=== PATIENT | male | born 1980 | race Caucasian/White ===

== ENCOUNTER 2016-09-25 07:33 | Day surgery (SDC) | payer OTHER ==
[2016-09-19 12:07] VITALS: BMI 21.2
[2016-09-25] MEDS ORDERED: MIDAZOLAM HCL 2 MG/2 ML SINGLE DOSE VIAL ONE (08:58)
[2016-09-25] MEDS ORDERED: PROPOFOL 20 ML ONE (08:58)
[2016-09-25] MEDS ORDERED: DEXAMETHASONE SOD PHOSPHATE 4 MG/1 ML VIAL ONE (09:01)
[2016-09-25] MEDS ORDERED: LIDOCAINE HCL/PF 2% SDV 5ML VIAL ONE (09:01)
[2016-09-25] MEDS ORDERED: ceFAZolin SODIUM 1 GM VIAL ONE (09:01)
[2016-09-25] MEDS ORDERED: ONDANSETRON 4 MG/2 ML VIAL ONE (09:01)
[2016-09-25] MEDS ORDERED: BUPIVACAINE HCL/PF 2.5 MG/ML - 30 ML VIAL IJ ONE (09:24)
[2016-09-25] MEDS ORDERED: BUPIVACAINE HCL/PF 0.25% (2.5MG/ML) 10 ML VIAL IJ ONE (09:27)
[2016-09-25] MEDS ORDERED: KETOROLAC TROMETHAMINE 30 MG/1 ML VIAL ONE (09:54)
[2016-09-25] MEDS ORDERED: ONDANSETRON 4 MG/2 ML VIAL IVPUSH PRN (11:14)
[2016-09-25] MEDS ORDERED: LACTATED RINGERS SOLUTION 1,000 ML IV SCH (11:15)
[2016-09-25] MEDS ORDERED: oxyCODONE HCL 5 MG TABLET PO PRN (11:15)
[2016-09-25 12:36] VITALS: PULSE 77; TEMP 98.8
[2016-09-25] MEDS ORDERED: oxyCODONE HCL 5 MG TABLET ONE (12:45)
[2016-09-25 13:13] VITALS: BP 120/65
--- NOTE | 2016-09-25 13:50 | OP ---
DATE OF OPERATION: 09/25/2016 PREOPERATIVE DIAGNOSIS: Right medial meniscus tear. POSTOPERATIVE DIAGNOSIS: Right medial meniscus tear. PROCEDURE: Right knee arthroscopy with medial meniscal repair. SURGEON: Mathew Nath MD JIG HAND: JAHAIRA Roberson whose skillful assistance was necessary for the safe and timely performance of this procedure. Ms. Alberto was able to provide retraction, drive the camera, assist in patient positioning as well as assist in the repair of the soft tissues performed in the case. ANESTHESIA: General. POSTOPERATIVE CONDITION: Stable. COMPLICATIONS: None. TOURNIQUET TIME: 81 minutes. INDICATIONS: This is a pleasant gentleman suffering medial knee pain. MRI demonstrated a peripheral medial meniscal tear. Treatment options including nonoperative versus operative management were discussed. Operative risks were discussed in detail including bleeding, infection, neurovascular injury, need for further surgery, postoperative pain and stiffness, meniscal re-tear, progression of osteoarthritis. We discussed medical risks such as heart attack, stroke, DVT, PE, and . The patient voiced understanding and elected to proceed. DESCRIPTION OF PROCEDURE: The patient was brought to the operating room where general anesthesia was administered. The right lower extremity was then prepped and draped in the usual sterile fashion. A preoperative dose of antibiotics was given, and the usual time-out procedure was performed. At this point, the portal sites were marked and then injected subcutaneously with 0.25% Marcaine. An 11 blade was now used to establish a lateral portal. The arthroscope was now passed into the knee. Examination of the patellofemoral joint was limited as there was plica present medially. The arthroscope was now passed into the notch. Here the ACL and PCL were visualized to be intact. The medial compartment was examined demonstrating a tear at the meniscocapsular junction in the body of the meniscus. A medial portal was now established under spinal needle localization. The meniscus was probed and found to instability at the site where the meniscal capsular tear was noted. The undersuface demonstrated some fraying without a full tear through it. Probing demonstrated the meniscus was quite soft, and probe could be inserted into the body of the meniscus through the anterior surface. Given the periphery of his tear, it was decided that repair would be the best option. The lateral compartment was now inspected and found to be unremarkable. The arthroscope was passed back into the medial compartment. Here, a spinal needle was used to pass from the outside in through the meniscus. A Nitinol wire was now passed through and retrieved out anteriorly. This was then used to shuttle a 2-0 FiberWire suture. An incision was now made about the needle. One dissection was carried down to the level of the capsule. No definite full- thickness rent in the capsule was seen, but a thin area could be palpated. A spinal needle was now reinserted through the meniscus creating horizontal mattress pattern. A Nitinol wire was passed, and the 2-0 FiberWire was retrieved from within the joint to create the horizontal mattress suture. This was then handtied. This was repeated for a 2nd more anterior suture. The meniscus was now probed and found to be stable. In order to provide additional capsular fixation, the capsule was imbricated on the outside where it was felt to be thin utilizing 0 Vicryl sutures of which 3 were passed and tied in a simple fashion. Attention was now directed into the notch. Utilizing the shaver, an area anterior to the anterior cruciate ligament in the notch was debrided off the soft tissue. A microfracture awl was used to create trephinations, and marrow was seen to be exiting from the bone. At this point, the arthroscope was passed back into the patellofemoral joint. Here, the plica was excised. No significant cartilage adhesions were noted. At this point, the excess fluid was withdrawn from the knee. Sterile dressings were placed. The patient was placed into a knee brace. He was locked in full extension. Tourniquet was left down. He was extubated and transferred to the recovery room in stable condition. MATHEW NATH M.D. [id number] MTDD
== END 2016-09-25 13:23 | disposition home or self-care (01) ==
LOC: FASU 07:33
PROVIDERS: ATTEND Orthopaedic Surgery Sports Medicine
PROC: 0SQC4ZZ Repair Right Knee Joint, Percutaneous Endoscopic Approach (ICD-10-PCS; principal; 2016-09-25 09:28)
DX: S83.241A Other tear of medial meniscus, current injury, right knee, initial encounter (principal); X58.XXXA Exposure to other specified factors, initial encounter; Y93.9 Activity, unspecified; Y92.9 Unspecified place or not applicable
CPT/HCPCS: 94760; 97116-GP

== ENCOUNTER 2016-11-03 12:35 | Inpatient (IN) | payer OTHER ==
[2016-11-03] MEDS ORDERED: SODIUM CHLORIDE 1,000 ML IV STA (12:49)
--- NOTE | 2016-11-03 13:04 | PDOC ---
History of Present Illness - General Chief Complaint: Pain Stated Complaint: RIGHT LEG DVT Time Seen by Provider: 11/03/16 12:43 History Source: Patient Exam Limitations: No Limitations - History of Present Illness Initial Comments: 11/03/16 13:00 36-year-old male with no past medical history presents to the emergency department with Dr. Hwang for evaluation for rule out pulmonary embolism. The patient had sustained a right knee injury in June 2016 while on the job. 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 At that time, the patient was evaluated by orthopedics and was demonstrate have a miniscule and capsule tear. Patient underwent surgery for approximately 5 weeks ago. Though the patient has been mobile, he is noted intermittent swelling in his right lower extremity but but denies any pain. Patient underwent a duplex of his lower extremities which demonstrated deep venous thromboses involving the right superficial femoral, popliteal and posterior tibial vein. Last oral days, the patient has had intermittent short duration of left-sided back pain that resolved. He denies any chest pain or shortness of breath now. Past History - Past Medical History Allergies/Adverse Reactions: Allergies Allergy/AdvReac Type Severity Reaction Status Date / Time No Known Allergies Allergy Verified 11/03/16 12:57 Home Medications: Ambulatory Orders NK [No Known Home Medication] 09/19/16 Anemia: No Asthma: No Cancer: No Cardiac Disorders: No CVA: No COPD: No CHF: No Dementia: No Diabetes: No GI Disorders: No Disorders: No HTN: No Hypercholesterolemia: No Liver Disease: No Seizures: No Thyroid Disease: No - Psycho/Social/Smoking Cessation Hx Anxiety: No Suicidal Ideation: No Smoking History: Current some day smoker Have you smoked in the past 12 months: Yes Number of Cigarettes Smoked Daily: 0 Information on smoking cessation initiated: Yes 'Breaking Loose' booklet given: 01/10/16 Hx Alcohol Use: No Drug/Substance Use Hx: No Substance Use Type: None Hx Substance Use Treatment: No Review of Systems - Review of Systems Able to Perform ROS?: Yes Comments:: 11/03/16 13:03 GENERAL/CONSTITUTIONAL: No fever, weakness. HEAD, EYES, EARS, NOSE AND THROAT: No change in vision. No ear pain or discharge. No sore throat. CARDIOVASCULAR: No chest pain or shortness of breath. RESPIRATORY: No cough, wheezing, or hemoptysis. GASTROINTESTINAL: No abdominal pain, nausea, vomiting, diarrhea, or decreased PO intolerance. GENITOURINARY: No dysuria, frequency, or change in urination. MUSCULOSKELETAL: Right Lower Extremity swelling SKIN: No rash NEUROLOGIC: No headache, vertigo, loss of consciousness, or change in strength/ sensation. ENDOCRINE: No increased thirst. No abnormal weight change. HEMATOLOGIC/LYMPHATIC: No anemia, easy bleeding, or history of blood clots. ALLERGIC/IMMUNOLOGIC: No hives or skin allergy. *Physical Exam - Vital Signs Last Vital Signs Temp Pulse Resp BP Pulse Ox 97.9 F 82 15 134/78 100 11/03/16 12:39 11/03/16 12:39 11/03/16 12:39 11/03/16 12:39 11/03/16 12:39 - Physical Exam Comments: 11/03/16 13:03 GENERAL: Awake, alert, and fully oriented, in no acute distress. HEAD: No signs of trauma EYES: PERRLA, EOMI, sclera anicteric, conjunctiva clear ENT: Auricles normal inspection, hearing grossly normal, nares patent, oropharynx clear without exudates. NECK: Normal ROM, supple, no lymphadenopathy, JVD, or masses LUNGS: Breath sounds equal, clear to auscultation bilaterally. No wheezes, and no crackles HEART: Regular rate and rhythm, normal S1 and S2, no murmurs, rubs or gallops ABDOMEN: Soft, nontender, normoactive bowel sounds. No guarding, no rebound. No masses EXTREMITIES: Right lower extremity edematous, enlarged compared to left. NEUROLOGICAL: Cranial nerves II through XII grossly intact. Normal speech, normal gait SKIN: Warm, Dry, normal turgor, no rashes or lesions noted. Heart Score/ECG Review - History History: Slightly suspicious - Electrocardiogram EKG: Normal (egularphysician) - Age Age: </= 45 - Risk Factors Based on the list above the patient has:: No risk factors known #1 ECG reviewed & interpreted by me at: 01:00 11/03/16 12:59 NSR 72, incomplete RBBB, no std/cash, QTC 431 msec. T wave flat III ED Treatment Course - LABORATORY CBC & Chemistry Diagram: 11/03/16 13:10 11/03/16 13:10 - RADIOLOGY Radiology Studies Ordered: Category Date Time Status CHEST CTA [CT] Stat CT Scan 11/03/16 12:49 Ordered Medical Decision Making - Medical Decision Making 11/03/16 13:04 The patient will most certainly need anticoagulation for right lower extremity DVT. However, given the intermittent left back and chest pain and incomplete right bundle-branch block on EKG, we'll rule out PE. 11/03/16 15:28 CBC, BMP 11/03/16 13:10 11/03/16 13:10 CMP Sodium 135 mmol/L (136-145) L 11/03/16 13:10 Potassium 4.6 mmol/L (3.5-5.1) 11/03/16 13:10 Chloride 104 mmol/L (98-107) 11/03/16 13:10 Carbon Dioxide 23 mmol/L (22-28) 11/03/16 13:10 Anion Gap 8 (8-16) 11/03/16 13:10 BUN 9 mg/dl (7-18) 11/03/16 13:10 Creatinine 0.8 mg/dl (0.6-1.3) 11/03/16 13:10 Creat Clearance w eGFR > 60 (>60) 11/03/16 13:10 Random Glucose 106 mg/dl (74-106) 11/03/16 13:10 Calcium 9.6 mg/dl (8.4-10.2) 11/03/16 13:10 Total Bilirubin 0.6 mg/dl (0.2-1.0) 11/03/16 13:10 AST 22 U/L (10-42) 11/03/16 13:10 ALT 15 U/L (10-40) 11/03/16 13:10 Alkaline Phosphatase 61 U/L (32-92) 11/03/16 13:10 Total Protein 7.4 g/dl (6.4-8.3) 11/03/16 13:10 Albumin 4.1 g/dl (3.5-5.0) 11/03/16 13:10 INR, PTT INR 1.07 (0.82-1.09) 11/03/16 14:00 CT scan of chest performed. Demonstrates bilateral PE. However, vitals stable. Results given to the patient and to his . Case discussed with DR. Barahona. Given that the patient is very stable and has been breathing comfortably and without difficulty breathing. Will admit to telemetry admission. Case discussed in detail with admitting physician including history, physical exam and ancillary studies. Admitting physician has assumed care for the patient, will follow all pending diagnostics and will complete the evaluation and treatment. *DC/Admit/Observation/Transfer Diagnosis at time of Disposition: Pulmonary embolism - Discharge Dispostion Condition at time of disposition: Good Admit: Yes - Referrals Referrals: Mathew Hwang MD [Primary Care Provider] -
[2016-11-03 13:34] LABS: BASOPHIL 0.9 % (0-2.0); EOSINOPHIL 4.5 % (0-4.5); MCHC 33.5 g/dl (32.0-35.9); MEAN CELL VOLUME 89.4 fl (80-96); MEAN PLT VOLUME 8.6 fl (7.5-11.1); NEUTROPHILS 78.9 % (42.8-82.8); PLATELET COUNT 313 K/MM3 (134-434); RDW 12.5 % (11.9-15.9); WHITE BLOOD COUNT 10.6 K/mm3 (4.0-10.0)
[2016-11-03 13:41] LABS: ALBUMIN 4.1 g/dl (3.5-5.0); ALK PHOS 61 U/L (32-92); ANION GAP 8 (8-16); BILIRUBIN,TOTAL 0.6 mg/dl (0.2-1.0); CALCIUM 9.6 mg/dl (8.4-10.2); CO2 23 mmol/L (22-28); COCKROFT - GAULT 133.83; CREATININE 0.8 mg/dl (0.6-1.3); GLUCOSE,RANDOM 106 mg/dl (74-106); SGOT/AST 22 U/L (10-42); SGPT/ALT 15 U/L (10-40); TOT PROT 7.4 g/dl (6.4-8.3)
[2016-11-03] MEDS ORDERED: HEPARIN NA (PORCINE) 5,000 UNITS/ML 1ML VIAL IVPUSH ONE (15:00)
[2016-11-03] MEDS ORDERED: HEPARIN NA (PORCINE) 5,000 UNITS/ML 1ML VIAL IVPUSH PRN (15:01)
[2016-11-03 15:04] LABS: ACTIVATED PTT 32.1 SECONDS (24.0-38.9)
[2016-11-03 15:09] LABS: INR 1.07 (0.82-1.09)
[2016-11-03] MEDS ORDERED: HEPARIN INFUSION - 500 ML IVPB ONE (15:11)
[2016-11-03] MEDS: HEPARIN - 25,000 UNIT in SODIUM CHLORIDE 495 ML IV SCH (15:40)
[2016-11-03 19:18] VITALS: BMI 20.9
--- NOTE | 2016-11-03 22:15 | HP ---
Admitting History and Physical - Primary Care Physician PCP: Spencer Barahona - Admission History of Present Illness: 36-year-old male with no past medical history presents to the emergency department with Dr. Hwang for evaluation for rule out pulmonary embolism. The patient had sustained a right knee injury in June 2016 while on the job. 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 At that time, the patient was evaluated by orthopedics and was demonstrate have a miniscule and capsule tear. Patient underwent surgery for approximately 5 weeks ago. Though the patient has been mobile, he is noted intermittent swelling in his right lower extremity but but denies any pain. Patient underwent a duplex of his lower extremities which demonstrated deep venous thromboses involving the right superficial femoral, popliteal and posterior tibial vein. Last oral days, the patient has had intermittent short duration of left-sided back pain that resolved. He denies any chest pain or shortness of breath - Past Medical History Rheumatology: Yes: Other (r knee surgery) - Smoking History Smoking history: Current some day smoker Have you smoked in the past 12 months: Yes Aproximately how many cigarettes per day: 0 - Alcohol/Substance Use Hx Alcohol Use: No Home Medications - Allergies Allergies/Adverse Reactions: Allergies Allergy/AdvReac Type Severity Reaction Status Date / Time No Known Allergies Allergy Verified 11/03/16 12:57 - Home Medications Home Medications: Ambulatory Orders NK [No Known Home Medication] 09/19/16 Review of Systems - Review of Systems Cardiovascular: reports: Other (back pain?) Physical Examination Vital Signs: Vital Signs Temperature 98.6 F 11/03/16 19:13 Pulse Rate 72 11/03/16 20:00 Respiratory Rate 15 11/03/16 20:00 Blood Pressure 105/63 11/03/16 20:00 O2 Sat by Pulse Oximetry (%) 99 11/03/16 20:00 Constitutional: Yes: No Distress HENT: Yes: Atraumatic Neck: Yes: Supple Cardiovascular: Yes: Regular Rate and Rhythm Respiratory: Yes: CTA Bilaterally Gastrointestinal: Yes: Normal Bowel Sounds Extremities: Yes: WNL Neurological: Yes: Alert, Oriented Problem List - Problems (1) Pulmonary embolism Code(s): I26.99 - OTHER PULMONARY EMBOLISM WITHOUT ACUTE COR PULMONALE (2) Knee injury Code(s): S89.90XA - UNSPECIFIED INJURY OF UNSPECIFIED LOWER LEG, INIT ENCNTR (3) Dvt femoral (deep venous thrombosis) Code(s): I82.419 - ACUTE EMBOLISM AND THROMBOSIS OF UNSPECIFIED FEMORAL VEIN Assessment/Plan Laboratory Tests 11/03/16 11/03/16 11/03/16 13:10 13:10 14:00 WBC 10.6 H RBC 4.51 Hgb 13.5 Hct 40.3 MCV 89.4 MCHC 33.5 RDW 12.5 Plt Count 313 MPV 8.6 Neutrophils % 78.9 Lymphocytes % 11.1 Monocytes % 4.6 Eosinophils % 4.5 Basophils % 0.9 INR 1.07 PTT (Actin FS) 32.1 Sodium 135 L Potassium 4.6 Chloride 104 Carbon Dioxide 23 Anion Gap 8 BUN 9 Creatinine 0.8 Creat Clearance w eGFR > 60 Random Glucose 106 Calcium 9.6 Total Bilirubin 0.6 AST 22 ALT 15 Alkaline Phosphatase 61 Total Protein 7.4 Albumin 4.1 11/03/16 21:30 WBC RBC Hgb Hct MCV MCHC RDW Plt Count MPV Neutrophils % Lymphocytes % Monocytes % Eosinophils % Basophils % INR PTT (Actin FS) 50.9 H D Sodium Potassium Chloride Carbon Dioxide Anion Gap BUN Creatinine Creat Clearance w eGFR Random Glucose Calcium Total Bilirubin AST ALT Alkaline Phosphatase Total Protein Albumin Active Medications Generic Name Dose Route Start Last Admin Trade Name Freq PRN Reason Stop Dose Admin Heparin Sodium (Porcine) 1,000 unit 11/03/16 15:01 Heparin - IVPUSH PRN PRN Heparin Heparin Sodium (Porcine) 5,000 unit 11/03/16 15:01 Heparin - IVPUSH PRN PRN Heparin Heparin Sodium (Porcine) 25, 500 mls @ 20 mls/hr 11/03/16 15:15 11/03/16 15:40 000 unit/ Sodium Chloride IV 20 mls/hr TITR ANABELLA Administration Protocol 1,000 UNIT/HR 1.PE /R KRISTAN DVT S/P KNEE SURGERY IV HEPARIN PER PROTOCOL WILL GET PULMONARY INVOLVED
[2016-11-04 07:17] LABS: BASOPHIL 1.2 % (0-2.0); EOSINOPHIL 7.9 % (0-4.5); MCH 30.1 pg (25.7-33.7); MCHC 32.8 g/dl (32.0-35.9); MEAN CELL VOLUME 91.8 fl (80-96); NEUTROPHILS 61.2 % (42.8-82.8); PLATELET COUNT 241 K/MM3 (134-434); RDW 13.1 % (11.9-15.9); WHITE BLOOD COUNT 6.7 K/mm3 (4.0-10.0)
[2016-11-04 08:04] LABS: ALBUMIN 3.4 g/dl (3.4-5.0); ANION GAP 9 (8-16); BILIRUBIN,TOTAL 0.6 mg/dL (0.2-1.0); CALCIUM 8.9 mg/dL (8.5-10.1); CO2 26 mmol/L (21-32); COCKROFT - GAULT 151; CREATININE 0.7 mg/dL (0.7-1.3); GLUCOSE,RANDOM 98 mg/dL (74-106); SGOT/AST 14 U/L (15-37); SGPT/ALT 17 U/L (12-78); TOT PROT 6.6 g/dl (6.4-8.2)
[2016-11-04 08:05] LABS: ALK PHOS 63 U/L (45-117)
--- NOTE | 2016-11-04 10:39 | PN ---
Progress Note (short form) - Note Progress Note: PULMONARY CONSULTATION DICTATED 11/04/16 IMP ACUTE PULMONARY EMBOLISM LIKELY PROVOKED S/P RECENT SURGERY RLL DVT PLAN ANTICOAGULATION ECHO CARDIAC ENZYMES W/U FOR HYPERCOAGULABLE STATE CONSIDER THROMBECTOMY RLE DVT DR LEWIS Problem List - Problems (1) Pulmonary embolism Code(s): I26.99 - OTHER PULMONARY EMBOLISM WITHOUT ACUTE COR PULMONALE (2) Neck injury Code(s): S19.9XXA - UNSPECIFIED INJURY OF NECK, INITIAL ENCOUNTER Qualifiers: Encounter type: initial encounter Qualified Code(s): S19.9XXA - Unspecified injury of neck, initial encounter (3) Dvt femoral (deep venous thrombosis) Code(s): I82.419 - ACUTE EMBOLISM AND THROMBOSIS OF UNSPECIFIED FEMORAL VEIN
--- NOTE | 2016-11-04 12:40 | PN ---
Progress Note (short form) - Note Progress Note: Pt reports he is comfortable. Leg remains swollen and stiff but without pain. AFVSS RLE persistent swelling NVID A/p DVT/PE s/p knee arthroscopy -pt has been started on treatment with anticoagulation -ok for gentle knee ROM -is considering embolectomy, has discussed with
--- NOTE | 2016-11-04 13:44 | EKG ---
Test Reason : Blood Pressure : / mmHG Vent. Rate : 072 BPM Atrial Rate : 072 BPM P-R Int : 108 ms QRS Dur : 118 ms QT Int : 394 ms P-R-T Axes : 050 067 059 degrees QTc Int : 431 ms SINUS RHYTHM WITH SHORT MS INCOMPLETE RIGHT BUNDLE BRANCH BLOCK BORDERLINE ECG WHEN COMPARED WITH ECG OF 30-NOV-2007 14:52, NO SIGNIFICANT CHANGE WAS FOUND Confirmed by ROMAN CLEARY, SOFYA ([id number]) on 11/04/2016 1:44:09 PM Referred By: MEAGAN Confirmed By:SOFYA OWENS MD
[2016-11-04] MEDS ORDERED: ALTEPLASE IVPB ONE (14:30)
[2016-11-04] MEDS ORDERED: SODIUM CHLORIDE IVPB ONE (14:30)
--- NOTE | 2016-11-04 15:08 | CONS ---
DATE OF CONSULTATION: 11/04/2016 REFERRING PHYSICIAN: Spencer Barahona MD The patient is a 36-year-old white man without any past medical history, admitted to [facility], with right lower extremity swelling. The patient underwent a knee surgery approximately 5 weeks ago. Apparently, he has been ambulating well but recently noticed swelling of the right lower extremity. He also complained of some chest pain about a week ago, which resolved after taking Advil. He underwent a duplex of the lower extremities which revealed a large DVT in the right lower extremity and right superficial popliteal and posterior tibial vein. He was transferred to [facility] ER for the above. In the ER, he underwent a CTA of the chest which revealed bilateral pulmonary emboli. He was started on IV heparin. The patient denies any shortness of breath, cough, or hemoptysis. Denies any fevers, weight loss, or night sweats. There is no history of DVT or PE in the past. There is no family history of PE. SOCIAL HISTORY: He has a history of smoking a few cigarettes a day. He stopped 8 weeks ago. 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 PAST MEDICAL HISTORY: Unremarkable. PAST SURGICAL HISTORY: Knee surgery 5 weeks ago. CURRENT MEDICATIONS: Heparin. REVIEW OF SYSTEMS: No orthopnea. No PND. No chest pain. No shortness of breath. No cough. No hemoptysis. Positive mild right lower extremity discomfort. PHYSICAL EXAMINATION: General: The patient is a well-developed, well-nourished male, awake, alert, in no acute distress. Vital Signs: Blood pressure 115/86, respiratory rate is 17, O2 saturation is 100% on room air. HEENT: Normocephalic, atraumatic. Neck: Supple. Heart: Regular S1, S2. Chest: Clear. Abdomen: Soft. Positive bowel sounds. Extremities: With swelling of the right lower extremity. Chest CT with bilateral pulmonary emboli. Ultrasound of the lower extremity is as noted. LABORATORY DATA: WBC is 6.7, hemoglobin 12.5, hematocrit 38, platelet count 241 ,000. PTT is 48.2. BUN 8, creatinine 0.7. IMPRESSION: Deep venous thrombosis, bilateral pulmonary emboli, provoked, most likely secondary to recent surgery. PLAN: Continue with anticoagulation, workup for hypercoagulable state as an outpatient, consider thrombectomy of the right lower extremity DVT, monitor CBC and platelet count, review echocardiogram and cardiac enzymes. REILLY LEWIS M.D. [id number] MTDD
--- NOTE | 2016-11-04 15:15 | PN ---
Progress Note, Physician - Current Medication List Current Medications: Active Medications Heparin Sodium (Porcine) (Heparin -) 1,000 unit IVPUSH PRN PRN PRN Reason: Heparin Heparin Sodium (Porcine) (Heparin -) 5,000 unit IVPUSH PRN PRN PRN Reason: Heparin Heparin Sodium (Porcine) 25, (000 unit/ Sodium Chloride) 500 mls @ 20 mls/hr IV TITR ANABELLA; 1,000 UNIT/HR PRN Reason: Protocol Last Titration: 11/04/16 09:50 Dose: 1,100 unit/hr - Objective Vital Signs: Vital Signs Temperature 98.6 F 11/04/16 12:21 Pulse Rate 87 11/04/16 12:21 Respiratory Rate 17 11/04/16 12:21 Blood Pressure 116/70 11/04/16 12:21 O2 Sat by Pulse Oximetry (%) 100 11/04/16 12:21 Constitutional: Yes: No Distress HENT: Yes: Atraumatic Neck: Yes: Supple Cardiovascular: Yes: Regular Rate and Rhythm Respiratory: Yes: CTA Bilaterally Gastrointestinal: Yes: Normal Bowel Sounds Extremities: Yes: WNL Neurological: Yes: Alert, Oriented Labs: CBC, BMP 11/04/16 06:00 11/04/16 06:00 INR, PTT INR 1.07 (0.82-1.09) 11/03/16 14:00 Problem List - Problems (1) Pulmonary embolism Assessment/Plan: ON IV HEPARIN Code(s): I26.99 - OTHER PULMONARY EMBOLISM WITHOUT ACUTE COR PULMONALE (2) Knee injury Code(s): S89.90XA - UNSPECIFIED INJURY OF UNSPECIFIED LOWER LEG, INIT ENCNTR (3) Dvt femoral (deep venous thrombosis) Assessment/Plan: ON HEPARIN PROBABALE THROMBECTOMY Code(s): I82.419 - ACUTE EMBOLISM AND THROMBOSIS OF UNSPECIFIED FEMORAL VEIN
[2016-11-04] MEDS: HEPARIN - 25,000 UNIT in SODIUM CHLORIDE 495 ML IV SCH (18:33)
--- NOTE | 2016-11-04 18:52 | CON.CARD ---
Cardiology Consult (text) - Consultation Consultation Note: cc: sent to rule out pe hpi: 36 m no sig pmhx sent to ER to r/o PE. Pt had knee injury and had knee surgery on right knee approx 5 wks ago. He recently began to notice swelling in right leg. He also had one brief episode of left back/flank pain. No cp, sob, palps, dizzy, loc, pnd, orthopnea. He was sent for le duplex as outpt and found to have extensive right le dvt. He was then sent to ER to eval for PE and cta chest shows b/l pe's. He was admitted and started on hep gtt and also had le thrombectomy today. After the procedure he was noted to have sinus ignacio so cardio consult requested. Pt has no hx hrt dz, no hx ignacio. Feels well currently, no complaints. 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 fam: no premature cad, scd, clotting disorders ros: per hpi; no fever, nvd, loja, vision changes, muscle pains, wt loss, gib, cough, nasal congestion meds: none taken at home pe: Vital Signs Period Temp Pulse Resp BP Sys/Lomeli Pulse Ox Last 24 Hr 98.5 F-98.6 F 45-107 15-20 105-127/57-86 98-100 nad no jvd rr, ignacio, s1s2 no mrg cta bl nl eff aaox3 no le edema left, 1+le edema right pos dp pt no carotid bruits no jaundice diaphoresis abd nt nd pos bs Laboratory Last Values WBC 6.7 K/mm3 (4.0-10.0) 11/04/16 06:00 RBC 4.14 M/mm3 (4.00-5.60) 11/04/16 06:00 Hgb 12.5 GM/dL (11.7-16.9) 11/04/16 06:00 Hct 38.0 % (35.4-49) 11/04/16 06:00 MCV 91.8 fl (80-96) 11/04/16 06:00 MCHC 32.8 g/dl (32.0-35.9) 11/04/16 06:00 RDW 13.1 % (11.9-15.9) 11/04/16 06:00 Plt Count 241 K/MM3 (134-434) 11/04/16 06:00 MPV 9.0 fl (7.5-11.1) 11/04/16 06:00 Neutrophils % 61.2 % (42.8-82.8) 11/04/16 06:00 Lymphocytes % 21.7 % (8-40) 11/04/16 06:00 Monocytes % 8.0 % (3.8-10.2) 11/04/16 06:00 Eosinophils % 7.9 % (0-4.5) H 11/04/16 06:00 Basophils % 1.2 % (0-2.0) 11/04/16 06:00 INR 1.07 (0.82-1.09) 11/03/16 14:00 PTT (Actin FS) 66.6 SECONDS (24.0-38.9) H D 11/04/16 12:00 Sodium 143 mmol/L (136-145) 11/04/16 06:00 Potassium 4.3 mmol/L (3.5-5.1) 11/04/16 06:00 Chloride 108 mmol/L (98-107) H 11/04/16 06:00 Carbon Dioxide 26 mmol/L (21-32) 11/04/16 06:00 Anion Gap 9 (8-16) 11/04/16 06:00 BUN 8 mg/dL (7-18) 11/04/16 06:00 Creatinine 0.7 mg/dL (0.7-1.3) 11/04/16 06:00 Creat Clearance w eGFR > 60 (>60) 11/04/16 06:00 Random Glucose 98 mg/dL (74-106) 11/04/16 06:00 Calcium 8.9 mg/dL (8.5-10.1) 11/04/16 06:00 Total Bilirubin 0.6 mg/dL (0.2-1.0) 11/04/16 06:00 AST 14 U/L (15-37) L 11/04/16 06:00 ALT 17 U/L (12-78) 11/04/16 06:00 Alkaline Phosphatase 63 U/L (45-117) 11/04/16 06:00 Total Protein 6.6 g/dl (6.4-8.2) 11/04/16 06:00 Albumin 3.4 g/dl (3.4-5.0) 11/04/16 06:00 tele: sr 40s-50s, no pathologic bradyarrhythmias or pauses ecg 11/03/16: sr, nl intervals, no ischemic changes cta chest: b/l pe's, no aortic diss/aneurysm, no chf a/p: 36 m no sig pmhx sent to ER to r/o PE. b/l pe's, right dvt: -likely provoked 2/2 knee surgery -s/p le dvt thrombectomy 11/04/16 -remains on hep gtt -no signs RV failure, check echo -heme eval pending -pulm following bradycardia: -upon presentation pt was in NSR with HR 70s-100s, after returning to floor from his le thrombectomy procedure he was having sinus ignacio in 40s-50s. Time course consistent with vagal response to the thrombectomy procedure/meds. No signs of pathologic bradycardia. No hypotension or symptoms. Monitor on tele, check tsh, check echo. Avoid meds that cause bradycardia. HR should improve on own.
[2016-11-04] MEDS ORDERED: SODIUM CHLORIDE 1,000 ML IV SCH (22:15)
[2016-11-05 08:44] LABS: MCH 31.3 pg (25.7-33.7); MCHC 34.3 g/dl (32.0-35.9); MEAN PLT VOLUME 8.9 fl (7.5-11.1); PLATELET COUNT 253 K/MM3 (134-434); RDW 12.6 % (11.9-15.9)
[2016-11-05 08:56] LABS: ALBUMIN 3.8 g/dl (3.5-5.0); ALK PHOS 56 U/L (32-92); ANION GAP 7 (8-16); BILIRUBIN,TOTAL 1.2 mg/dl (0.2-1.0); CALCIUM 9.4 mg/dl (8.4-10.2); CO2 23 mmol/L (22-28); CREATININE 0.8 mg/dl (0.6-1.3); GLUCOSE,RANDOM 106 mg/dl (74-106); SGOT/AST 23 U/L (10-42); SGPT/ALT 14 U/L (10-40); TOT PROT 6.8 g/dl (6.4-8.3)
[2016-11-05 09:04] LABS: ACTIVATED PTT 43.1 SECONDS (24.0-38.9)
[2016-11-05 09:09] LABS: INR 1.09 (0.82-1.09); PROTHROMBIN TIME (PATIENT) 12.2 SEC (10.2-13.0)
--- NOTE | 2016-11-05 10:19 | PN ---
Progress Note, Physician History of Present Illness: PULMONARY ALERT,NO COMPLAINTS,S/P CATHETER DIRECTED THROMBOLYSIS RLE DVT TOLERATED PROCEDURE WELL W/O COMPLICATIONS. - Current Medication List Current Medications: Active Medications Heparin Sodium (Porcine) (Heparin -) 1,000 unit IVPUSH PRN PRN PRN Reason: Heparin Heparin Sodium (Porcine) (Heparin -) 5,000 unit IVPUSH PRN PRN PRN Reason: Heparin Heparin Sodium (Porcine) 25, (000 unit/ Sodium Chloride) 500 mls @ 20 mls/hr IV TITR ANABELLA; 1,000 UNIT/HR PRN Reason: Protocol Last Admin: 11/04/16 18:33 Dose: 22 mls/hr - Objective Vital Signs: Vital Signs Temperature 98.1 F 11/05/16 06:37 Pulse Rate 64 11/05/16 06:37 Respiratory Rate 17 11/05/16 06:37 Blood Pressure 119/67 11/05/16 06:37 O2 Sat by Pulse Oximetry (%) 100 11/04/16 22:38 Constitutional: Yes: Well Nourished, Calm Eyes: Yes: WNL HENT: Yes: WNL Neck: Yes: WNL Cardiovascular: Yes: Regular Rate and Rhythm, S1, S2 Respiratory: Yes: CTA Bilaterally Gastrointestinal: Yes: WNL Extremities: Yes: WNL, Other (LESS SWELLING RLE) Labs: CBC, BMP 11/05/16 07:00 11/05/16 07:00 INR, PTT INR 1.09 (0.82-1.09) 11/05/16 07:00 - ....Imaging Other: Report Reviewed Problem List - Problems (1) Pulmonary embolism Code(s): I26.99 - OTHER PULMONARY EMBOLISM WITHOUT ACUTE COR PULMONALE (2) Neck injury Code(s): S19.9XXA - UNSPECIFIED INJURY OF NECK, INITIAL ENCOUNTER Qualifiers: Encounter type: initial encounter Qualified Code(s): S19.9XXA - Unspecified injury of neck, initial encounter (3) Dvt femoral (deep venous thrombosis) Code(s): I82.419 - ACUTE EMBOLISM AND THROMBOSIS OF UNSPECIFIED FEMORAL VEIN Assessment/Plan IMP ACUTE PULMONARY EMBOLISM LIKELY PROVOKED S/P RECENT SURGERY RLL DVT S/P THROMBOLYSIS PULMONARY HTN PLAN ANTICOAGULATION W/U FOR HYPERCOAGULABLE STATE MONITOR CBC,PLT CT,LYTES DR LEWIS Problem List - Problems (1) Pulmonary embolism Code(s): I26.99 - OTHER PULMONARY EMBOLISM WITHOUT ACUTE COR PULMONALE (2) Neck injury Code(s): S19.9XXA - UNSPECIFIED INJURY OF NECK, INITIAL ENCOUNTER Qualifiers: Encounter type: initial encounter Qualified Code(s): S19.9XXA - Unspecified injury of neck, initial encounter (3) Dvt femoral (deep venous thrombosis) Code(s): I82.419 - ACUTE EMBOLISM AND THROMBOSIS OF UNSPECIFIED FEMORAL VEIN
[2016-11-05] MEDS: HEPARIN NA (PORCINE) 5,000 UNITS/ML 1ML VIAL IVPUSH PRN (11:07)
[2016-11-05] MEDS: HEPARIN - 25,000 UNIT in SODIUM CHLORIDE 495 ML IV SCH ×2 (11:07→15:45)
[2016-11-05 11:52] LABS: THYROID STIMULATING HORMONE 2.79 uIU/ml (0.358-3.74)
[2016-11-05 15:42] LABS: ANION GAP 8 (8-16); CALCIUM 8.9 mg/dl (8.4-10.2); CO2 21 mmol/L (22-28); CREATININE 0.9 mg/dl (0.6-1.3); GLUCOSE,RANDOM 130 mg/dl (74-106)
--- NOTE | 2016-11-05 19:38 | PN ---
Progress Note, Physician History of Present Illness: STABLE - Current Medication List Current Medications: Active Medications Heparin Sodium (Porcine) (Heparin -) 1,000 unit IVPUSH PRN PRN PRN Reason: Heparin Last Admin: 11/05/16 11:07 Dose: 1,000 unit Heparin Sodium (Porcine) (Heparin -) 5,000 unit IVPUSH PRN PRN PRN Reason: Heparin Heparin Sodium (Porcine) 25, (000 unit/ Sodium Chloride) 500 mls @ 20 mls/hr IV TITR ANABELLA; 1,000 UNIT/HR PRN Reason: Protocol Last Admin: 11/05/16 15:45 Dose: Not Given - Objective Vital Signs: Vital Signs Temperature 98.2 F 11/05/16 14:35 Pulse Rate 70 11/05/16 14:35 Respiratory Rate 18 11/05/16 14:35 Blood Pressure 116/67 11/05/16 14:35 O2 Sat by Pulse Oximetry (%) 100 11/05/16 14:35 Constitutional: Yes: No Distress HENT: Yes: Atraumatic Neck: Yes: Supple Cardiovascular: Yes: Regular Rate and Rhythm Respiratory: Yes: CTA Bilaterally Gastrointestinal: Yes: Normal Bowel Sounds Edema: RLE: 1+ Neurological: Yes: Alert, Oriented Labs: CBC, BMP 11/05/16 07:00 11/05/16 14:15 INR, PTT INR 1.09 (0.82-1.09) 11/05/16 07:00 Problem List - Problems (1) Pulmonary embolism Assessment/Plan: ON IV HEPARIN Code(s): I26.99 - OTHER PULMONARY EMBOLISM WITHOUT ACUTE COR PULMONALE (2) Knee injury Code(s): S89.90XA - UNSPECIFIED INJURY OF UNSPECIFIED LOWER LEG, INIT ENCNTR (3) Dvt femoral (deep venous thrombosis) Assessment/Plan: ON HEPARIN S/P THROMBECTOMY STABLE Code(s): I82.419 - ACUTE EMBOLISM AND THROMBOSIS OF UNSPECIFIED FEMORAL VEIN
--- NOTE | 2016-11-05 20:31 | PN ---
Progress Note (short form) - Note Progress Note: Patient seen by Dr. Nino already Dr. Nino to f/u
--- NOTE | 2016-11-05 21:18 | CONSULT ---
Consult Consult Specialty:: heme Referred by:: dr. palomino seen 9AM Reason for Consultation:: VTE - History of Present Illness Chief Complaint: PE History of Present Illness: 36 yom w/o PMH underwent R knee arthroscopy/meniscal repair 09/25. Ongoing P/T and trying to remain fairly active and noticed intermittent LE swelling. Also reports an episode of a L CW muscle strain brief duration last wk. On f/u w ortho, LE noted to be swollen and ref for duplex which evidenced extensive DVT. CTA showed segmental PEs upper and lower lobes. He denies any SOB or further chest sxs. He underwent successful t-lysis of RLE and remains on heparin gtt. No prior hx or known FH of thromboses - History Source History Provided By: Patient, Medical Record - Past Medical History Rheumatology: Yes: Other (r knee surgery) - Alcohol/Substance Use Hx Alcohol Use: No - Smoking History Smoking history: Current some day smoker Have you smoked in the past 12 months: Yes Aproximately how many cigarettes per day: 0 If you are a former smoker, when did you quit?: 8 weeks ago Home Medications - Allergies Allergies/Adverse Reactions: Allergies Allergy/AdvReac Type Severity Reaction Status Date / Time No Known Allergies Allergy Verified 11/03/16 12:57 - Home Medications Home Medications: Ambulatory Orders NK [No Known Home Medication] 09/19/16 Physical Exam Vital Signs: Vital Signs Temperature 98.2 F 11/05/16 14:35 Pulse Rate 70 11/05/16 14:35 Respiratory Rate 18 11/05/16 21:08 Blood Pressure 116/67 11/05/16 14:35 O2 Sat by Pulse Oximetry (%) 100 11/05/16 21:08 Constitutional: Yes: No Distress Eyes: Yes: WNL Neck: Yes: WNL, Supple Cardiovascular: Yes: Regular Rate and Rhythm Respiratory: Yes: CTA Bilaterally Gastrointestinal: Yes: Normal Bowel Sounds, Soft Musculoskeletal: Yes: Other (RLE brace) Extremities: Yes: Other (RLE sl>LLE) Edema: No Integumentary: Yes: WNL Labs: CBC, BMP 11/05/16 07:00 11/05/16 14:15 Assessment/Plan acute DVT-PEs following knee surgery. s/p LE thrombolysis due to extensive clot Remains HD stable Plan is for heparin to be switched to oral agent RF is post-op state, but will send off HC lab w/u as outpt He will f/u in office 1-2mos
--- NOTE | 2016-11-06 07:46 | PN ---
Progress Note, Physician History of Present Illness: PULMONARY ALERT,NO COMPLAINTS,-SOB,-CP, - Current Medication List Current Medications: Active Medications Heparin Sodium (Porcine) (Heparin -) 1,000 unit IVPUSH PRN PRN PRN Reason: Heparin Last Admin: 11/05/16 11:07 Dose: 1,000 unit Heparin Sodium (Porcine) (Heparin -) 5,000 unit IVPUSH PRN PRN PRN Reason: Heparin Heparin Sodium (Porcine) 25, (000 unit/ Sodium Chloride) 500 mls @ 20 mls/hr IV TITR ANABELLA; 1,000 UNIT/HR PRN Reason: Protocol Last Admin: 11/05/16 15:45 Dose: Not Given - Objective Vital Signs: Vital Signs Temperature 98.0 F 11/06/16 06:00 Pulse Rate 58 L 11/06/16 06:00 Respiratory Rate 20 11/06/16 06:00 Blood Pressure 108/61 11/06/16 06:00 O2 Sat by Pulse Oximetry (%) 98 11/06/16 03:54 Constitutional: Yes: Well Nourished, Calm Eyes: Yes: WNL HENT: Yes: WNL Cardiovascular: Yes: Regular Rate and Rhythm, S1, S2 Respiratory: Yes: CTA Bilaterally Gastrointestinal: Yes: WNL Extremities: Yes: Other (LESS SWELLING RLE) Edema: No Labs: Problem List - Problems (1) Pulmonary embolism Code(s): I26.99 - OTHER PULMONARY EMBOLISM WITHOUT ACUTE COR PULMONALE (2) Neck injury Code(s): S19.9XXA - UNSPECIFIED INJURY OF NECK, INITIAL ENCOUNTER Qualifiers: Encounter type: initial encounter Qualified Code(s): S19.9XXA - Unspecified injury of neck, initial encounter (3) Dvt femoral (deep venous thrombosis) Code(s): I82.419 - ACUTE EMBOLISM AND THROMBOSIS OF UNSPECIFIED FEMORAL VEIN Assessment/Plan IMP ACUTE PULMONARY EMBOLISM LIKELY PROVOKED S/P RECENT SURGERY RLL DVT S/P THROMBOLYSIS PULMONARY HTN PLAN START ELIQUIS 10MG BID X 7 DAYS THEM REDUCE TO 5MG P BID W/U FOR HYPERCOAGULABLE STATE OUTPATIENT MONITOR CBC,PLT CT,LYTES DR LEWIS Problem List - Problems (1) Pulmonary embolism Code(s): I26.99 - OTHER PULMONARY EMBOLISM WITHOUT ACUTE COR PULMONALE (2) Neck injury Code(s): S19.9XXA - UNSPECIFIED INJURY OF NECK, INITIAL ENCOUNTER Qualifiers: Encounter type: initial encounter Qualified Code(s): S19.9XXA - Unspecified injury of neck, initial encounter (3) Dvt femoral (deep venous thrombosis) Code(s): I82.419 - ACUTE EMBOLISM AND THROMBOSIS OF UNSPECIFIED FEMORAL VEIN
[2016-11-06] MEDS: HEPARIN - 25,000 UNIT in SODIUM CHLORIDE 495 ML IV SCH (08:51)
[2016-11-06] MEDS: HEPARIN NA (PORCINE) 5,000 UNITS/ML 1ML VIAL IVPUSH PRN (08:53)
[2016-11-06] MEDS: APIXABAN 5 MG TABLET PO SCH ×2 (12:49→21:22)
--- NOTE | 2016-11-06 15:27 | PN ---
Progress Note, Physician History of Present Illness: STABLE - Current Medication List Current Medications: Active Medications Apixaban (Eliquis -) 10 mg PO BID ANABELLA Last Admin: 11/06/16 12:49 Dose: 10 mg - Objective Vital Signs: Vital Signs Temperature 97.2 F L 11/06/16 14:07 Pulse Rate 77 11/06/16 14:07 Respiratory Rate 16 11/06/16 14:07 Blood Pressure 107/63 11/06/16 14:07 O2 Sat by Pulse Oximetry (%) 100 11/06/16 14:07 Constitutional: Yes: No Distress HENT: Yes: Atraumatic Neck: Yes: Supple Cardiovascular: Yes: Regular Rate and Rhythm Respiratory: Yes: CTA Bilaterally Gastrointestinal: Yes: Normal Bowel Sounds Edema: RLE: 1+ Neurological: Yes: Alert, Oriented Labs: CBC, BMP 11/05/16 14:15 INR, PTT INR 1.09 (0.82-1.09) 11/05/16 07:00 Problem List - Problems (1) Pulmonary embolism Assessment/Plan: ON IV HEPARIN Code(s): I26.99 - OTHER PULMONARY EMBOLISM WITHOUT ACUTE COR PULMONALE (2) Knee injury Code(s): S89.90XA - UNSPECIFIED INJURY OF UNSPECIFIED LOWER LEG, INIT ENCNTR (3) Dvt femoral (deep venous thrombosis) Assessment/Plan: ON HEPARIN s/p thrombectomy Code(s): I82.419 - ACUTE EMBOLISM AND THROMBOSIS OF UNSPECIFIED FEMORAL VEIN
[2016-11-06 17:42] LABS: MCHC 33.6 g/dl (32.0-35.9); MEAN CELL VOLUME 92.2 fl (80-96); MEAN PLT VOLUME 9.6 fl (7.5-11.1); PLATELET COUNT 225 K/MM3 (134-434); WHITE BLOOD COUNT 7.1 K/mm3 (4.0-10.0)
[2016-11-07 05:21] VITALS: BP 104/56; PULSE 55; TEMP 97.9
--- NOTE | 2016-11-07 07:18 | PN ---
Progress Note, Physician - Current Medication List Current Medications: Active Medications Apixaban (Eliquis -) 10 mg PO BID ANABELLA Last Admin: 11/06/16 21:22 Dose: 10 mg - Objective Vital Signs: Vital Signs Temperature 97.9 F 11/07/16 05:20 Pulse Rate 55 L 11/07/16 05:20 Respiratory Rate 20 11/07/16 05:20 Blood Pressure 104/56 11/07/16 05:20 O2 Sat by Pulse Oximetry (%) 100 11/07/16 03:59 Labs: CBC, BMP 11/06/16 08:06 11/05/16 14:15 INR, PTT INR 1.09 (0.82-1.09) 11/05/16 07:00 Problem List - Problems (1) Pulmonary embolism Code(s): I26.99 - OTHER PULMONARY EMBOLISM WITHOUT ACUTE COR PULMONALE (2) Neck injury Code(s): S19.9XXA - UNSPECIFIED INJURY OF NECK, INITIAL ENCOUNTER Qualifiers: Encounter type: initial encounter Qualified Code(s): S19.9XXA - Unspecified injury of neck, initial encounter (3) Dvt femoral (deep venous thrombosis) Code(s): I82.419 - ACUTE EMBOLISM AND THROMBOSIS OF UNSPECIFIED FEMORAL VEIN Assessment/Plan IMP ACUTE PULMONARY EMBOLISM LIKELY PROVOKED S/P RECENT SURGERY RLL DVT S/P THROMBOLYSIS PULMONARY HTN PLAN START ELIQUIS 10MG BID X 7 DAYS THEM REDUCE TO 5MG PO BID W/U FOR HYPERCOAGULABLE STATE OUTPATIENT MONITOR CBC,PLT CT,LYTES DR LEWIS Problem List - Problems (1) Pulmonary embolism Code(s): I26.99 - OTHER PULMONARY EMBOLISM WITHOUT ACUTE COR PULMONALE (2) Neck injury Code(s): S19.9XXA - UNSPECIFIED INJURY OF NECK, INITIAL ENCOUNTER Qualifiers: Encounter type: initial encounter Qualified Code(s): S19.9XXA - Unspecified injury of neck, initial encounter (3) Dvt femoral (deep venous thrombosis) Code(s): I82.419 - ACUTE EMBOLISM AND THROMBOSIS OF UNSPECIFIED FEMORAL VEIN
--- NOTE | 2016-11-07 10:11 | PN ---
Progress Note, Physician History of Present Illness: PULMONARY ALERT,NAD,-SOB,-CP. RLE MUCH IMPROVED - Current Medication List Current Medications: Active Medications Apixaban (Eliquis -) 10 mg PO BID ANABELLA Last Admin: 11/06/16 21:22 Dose: 10 mg - Objective Vital Signs: Vital Signs Temperature 97.9 F 11/07/16 05:20 Pulse Rate 55 L 11/07/16 05:20 Respiratory Rate 20 11/07/16 05:20 Blood Pressure 104/56 11/07/16 05:20 O2 Sat by Pulse Oximetry (%) 100 11/07/16 03:59 Constitutional: Yes: Well Nourished, Calm Eyes: Yes: WNL HENT: Yes: WNL Neck: Yes: WNL Cardiovascular: Yes: Regular Rate and Rhythm, S1, S2 Respiratory: Yes: CTA Bilaterally Extremities: Yes: WNL, Other (- SWELLING RLE) Edema: No Problem List - Problems (1) Pulmonary embolism Code(s): I26.99 - OTHER PULMONARY EMBOLISM WITHOUT ACUTE COR PULMONALE (2) Neck injury Code(s): S19.9XXA - UNSPECIFIED INJURY OF NECK, INITIAL ENCOUNTER Qualifiers: Encounter type: initial encounter Qualified Code(s): S19.9XXA - Unspecified injury of neck, initial encounter (3) Dvt femoral (deep venous thrombosis) Code(s): I82.419 - ACUTE EMBOLISM AND THROMBOSIS OF UNSPECIFIED FEMORAL VEIN Assessment/Plan IMP ACUTE PULMONARY EMBOLISM LIKELY PROVOKED S/P RECENT SURGERY RLL DVT S/P THROMBOLYSIS PULMONARY HTN PLAN START ELIQUIS 10MG BID X 7 DAYS THEM REDUCE TO 5MG PO BID W/U FOR HYPERCOAGULABLE STATE OUTPATIENT D/C HOME F/U ECHO [address] LEWIS Problem List - Problems (1) Pulmonary embolism Code(s): I26.99 - OTHER PULMONARY EMBOLISM WITHOUT ACUTE COR PULMONALE (2) Neck injury Code(s): S19.9XXA - UNSPECIFIED INJURY OF NECK, INITIAL ENCOUNTER Qualifiers: Encounter type: initial encounter Qualified Code(s): S19.9XXA - Unspecified injury of neck, initial encounter (3) Dvt femoral (deep venous thrombosis) Code(s): I82.419 - ACUTE EMBOLISM AND THROMBOSIS OF UNSPECIFIED FEMORAL VEIN
[2016-11-07] MEDS: APIXABAN 5 MG TABLET PO SCH (11:41)
--- NOTE | 2016-11-07 19:47 | DS ---
Physical Examination Vital Signs: Vital Signs Temperature 97.9 F 11/07/16 05:20 Pulse Rate 55 L 11/07/16 05:20 Respiratory Rate 20 11/07/16 05:20 Blood Pressure 104/56 11/07/16 05:20 O2 Sat by Pulse Oximetry (%) 100 11/07/16 03:59 Labs: CBC, BMP 11/06/16 08:06 11/05/16 14:15 Discharge Summary Reason For Visit: BILATERAL PULMONARY EMBOLISM Condition: Good - Instructions Diet, Activity, Other Instructions: Do not smoke,drink alcohol. Do not cross legs. Eliquis 10mg twice a day. This has been sent to your pharmacy. Referrals: Mathew Hwang MD [Primary Care Provider] - Lisa Nino MD [Staff Physician] - Disposition: HOME - Home Medications Comprehensive Discharge Medication List: Ambulatory Orders NK [No Known Home Medication] 09/19/[address] nino 1 week
== END 2016-11-07 11:49 | disposition home or self-care (01) | DRG 173 ==
LOC: FER 12:35 → FM/S 21:53
PROVIDERS: ADMIT Internal Medicine; ATTEND Internal Medicine
PROC: 3E033GC Introduction of Other Therapeutic Substance into Peripheral Vein, Percutaneous Approach (ICD-10-PCS; 2016-11-03)
PROC: 06CM3ZZ Extirpation of Matter from Right Femoral Vein, Percutaneous Approach (ICD-10-PCS; principal; 2016-11-04)
PROC: 06CY3ZZ Extirpation of Matter from Lower Vein, Percutaneous Approach (ICD-10-PCS; 2016-11-04)
PROC: 3E04317 Introduction of Other Thrombolytic into Central Vein, Percutaneous Approach (ICD-10-PCS; 2016-11-04)
PROC: B519ZZA Fluoroscopy of Inferior Vena Cava, Guidance (ICD-10-PCS; 2016-11-04)
DX: I82.411 Acute embolism and thrombosis of right femoral vein (principal); I26.99 Other pulmonary embolism without acute cor pulmonale; R00.1 Bradycardia, unspecified; I27.2 Other secondary pulmonary hypertension; Z72.0 Tobacco use; Z98.890 Other specified postprocedural states
CPT/HCPCS: 36415; 37187; 37212; 71275-TC; 80048; 80053; 84443; 85025; 85027; 85610; 85730; 93005; 93306-TC; 99285-25; C1757; C1769; C1887; J1644